=== PATIENT | female | born 1960 | race American Indian/Alaskan Native ===

== ENCOUNTER 2017-11-11 17:13 | Emergency (ER) | payer SELFPAY ==
[2017-11-11 17:56] VITALS: BP 161/77
--- NOTE | 2017-11-11 19:26 | Emergency Department Report ---
ED Back Pain/Injury HPI - General Chief Complaint: Back Pain/Injury Stated Complaint: BACK PAIN Time Seen by Provider: 11/11/17 19:10 Source: patient Limitations: No Limitations - History of Present Illness Initial Comments: This is a 57 y.o. female that presents with neck and upper back pain for years from work related injury in 2014. She is currently managed for pain by pain management at [facility]. She is having a diagnostic exam on 11/18/2017 and can't take oxycodone or any NSAID's, risk of bleeding prior to procedure. Patient reports pain is 10/10, sharp, and constant. States it is worse with movement. Denies numbness, tingling, radiating, and erythema. MD Complaint: back pain -: year(s) (3) Similar Symptoms Previously: Yes (chronic neck pain from work injury) Place: work Radiation: none Severity: severe Severity scale (0 -10): 10 Quality: sharp, aching Consistency: constant Improves With: medication Worsens With: movement Associated Symptoms: denies other symptoms Treatments Prior to Arrival: prescription analgesics - Related Data Previous Rx's Medication Instructions Recorded Last Taken Type tiZANidine [Zanaflex] 4 mg PO TID #20 tablet 11/11/17 Unknown Rx traMADol [Ultram 50 MG tab] 50 mg PO Q6HR PRN #20 tablet 11/11/17 Unknown Rx Allergies Allergy/AdvReac Type Severity Reaction Status Date / Time No Known Allergies Allergy Unverified 11/11/17 17:56 ED Review of Systems ROS: Stated complaint: BACK PAIN Other details as noted in HPI Constitutional: denies: chills, fever Respiratory: denies: cough, shortness of breath, wheezing Cardiovascular: denies: chest pain, palpitations Gastrointestinal: denies: abdominal pain, nausea, vomiting, diarrhea Musculoskeletal: back pain (upper back pain), arthralgia (neck pain). denies: joint swelling Skin: denies: rash, lesions Neurological: denies: headache, weakness, numbness, paresthesias ED Past Medical Hx - Past Medical History elevated cholesterol,chronic pain for back injury ED Back Pain Physical Exam - Exam General: Vital signs noted. No distress. Alert and acting appropriately. Back/Abdomen: Yes Perithoracic Tenderness (tenderness with deep palpation of bilateral cervical trapezius), No Abdominal Tenderness, No Perilumbar Tenderness , No Sacroiliac Tenderness, No Flank Tenderness, No Straight Leg Raise Pain Neuro: Yes Normal Sensation, Yes Normal DTR's, Yes Normal Gait, No Motor Weakness ED Course Vital Signs 11/11/17 17:48 Temperature 98 F Pulse Rate 118 H Respiratory 18 Rate Blood Pressure 161/77 O2 Sat by Pulse 100 Oximetry ED Medical Decision Making - Medical Decision Making This is a 57 y.o. female that presents with chronic neck and upper back pain from work injury 3 years ago. She is having a diagnistic procedure 11/18/2017 and can't take NSAID's prior to procedure. Chronic use of percocet from [place] pain management. Follow up appointment 11/23 with pain management. Patient is stable and examined by me. No acute signs of distress noted. Discussed plan to start tramadol and tizanidine with patient. Patient agrees to ED plan of care. Discharged home and encouraged to f/u with pain management in 3 days. Critical care attestation.: If time is entered above; I have spent that time in minutes in the direct care of this critically ill patient, excluding procedure time. ED Disposition Clinical Impression: Chronic neck and back pain, Arthralgia of back Disposition: DC-01 TO HOME OR SELFCARE Is pt being admited?: No Does the pt Need Aspirin: No Condition: Stable Instructions: Cervical Radiculopathy (ED), Arthralgia (ED) Additional Instructions: Rest Use ice or heat on affected area for 20 minutes and off for 2 hours. Take pain medication as needed for pain. Don't drive or operate heavy machinery while taking muscle relaxers because they may cause drowsiness. Follow up with Primary Care Provider in 24-72 hours. Prescriptions: tiZANidine [Zanaflex] 4 mg PO TID #20 tablet traMADol [Ultram 50 MG tab] 50 mg PO Q6HR PRN #20 tablet PRN Reason: Pain Referrals: [facility] [Provider Group] - 3-5 Days [facility] [Outside] - 3-5 Days [facility] [Outside] - 3-5 Days Time of Disposition: 19:50 Print Language: [place]
[2017-11-11] MEDS ORDERED: ULTRAM PO ONE (19:50)
== END 2017-11-11 19:56 | disposition home or self-care (01) ==
LOC: ED 17:13
DX: M54.6 Pain in thoracic spine (principal); M54.2 Cervicalgia; G89.29 Other chronic pain
CPT/HCPCS: 99282